=== PATIENT | male | born 1955 | race Two or more races ===

== ENCOUNTER 2020-11-01 19:07 | Emergency (ER) | payer BC, OTHER ==
[~2020-11-01] VITALS: Ht 172.7 cm; Wt 89.1 kg
[2020-11-01 19:25] VITALS: BP 127/80
== END 2020-11-01 21:04 | disposition home or self-care (01) ==
LOC: ER 19:08
DX: H11.31 Conjunctival hemorrhage, right eye (principal); Z88.6 Allergy status to analgesic agent
CPT/HCPCS: 99283

== ENCOUNTER 2021-04-11 14:35 | Emergency (ER) | payer OTHER ==
[~2021-04-11] VITALS: Ht 172.7 cm; Wt 89.9 kg
[2021-04-11 14:42] VITALS: BP 170/101
[2021-04-11] MEDS ORDERED: NAPR-56 PO (15:28)
[2021-04-11] MEDS ORDERED: HYDR-3965 PO (15:28)
== END 2021-04-11 15:42 | disposition home or self-care (01) ==
LOC: ER 14:36
DX: S50.11XA Contusion of right forearm, initial encounter (principal); M79.631 Pain in right forearm; Z98.890 Other specified postprocedural states; Z72.89 Other problems related to lifestyle; Z88.8 Allergy status to other drugs, medicaments and biological substances; Z79.899 Other long term (current) drug therapy; X58.XXXA Exposure to other specified factors, initial encounter; Y93.89 Activity, other specified; Y92.89 Other specified places as the place of occurrence of the external cause; Y99.8 Other external cause status
CPT/HCPCS: 73090; 99283